=== PATIENT | male | born 1950 | race Caucasian/White ===

== ENCOUNTER 2020-06-27 06:32 | Observation (INO) | payer MEDICARE ==
[2020-06-27] MEDS ORDERED: SODIUM CHLORIDE 0.9% 500 ML 500 ML IV STA (06:55)
[2020-06-27] MEDS ORDERED: MORPHINE SULFATE 4 MG/ML SYRINGE IV STA (06:55)
--- NOTE | 2020-06-27 06:58 | ED ---
General Adult HPI - General Chief complaint: Chest Pain Stated complaint: Chest Pain Time Seen by Provider: 06/27/20 06:46 Source: patient, RN notes reviewed Mode of arrival: wheelchair Limitations: no limitations - History of Present Illness Initial comments: 70-year-old male with a past medical history of coronary bypass in 2015 presents to the emergency room for a chief complaint of left arm pain. Patient states he woke up around 1:30 this morning and had a pain in his left arm. States it radiates downwards. States this is accompanied by chest tightness but denies any chest pain. Denies shortness of breath. Denies diaphoresis nausea or vom iting. Patient states he took nitro 3 times but it did not help. He states this medication is probably 4 years old. Patient is from [place] and is visiting this area. Patient believes he had a normal stress test 3 years ago. Patient has no other complaints at this time including shortness of breath, abdominal pain, nausea or vomiting, headache, or visual changes. - Related Data Home Medications Medication Instructions Recorded Confirmed Aspirin EC [Ecotrin] 325 mg PO DAILY 06/27/20 06/27/20 Isosorbide Mononitrate ER [Imdur] 30 mg PO DAILY 06/27/20 06/27/20 Pantoprazole Sodium [Protonix] 40 mg PO DAILY 06/27/20 06/27/20 Simvastatin [Zocor] 20 mg PO HS 06/27/20 06/27/20 amLODIPine [Norvasc] 5 mg PO DAILY 06/27/20 06/27/20 Allergies Allergy/AdvReac Type Severity Reaction Status Date / Time cephalexin [From Keflex] Allergy Rash/Hives Verified 06/27/20 07:35 Penicillins Allergy Rash/Hives Verified 06/27/20 07:35 Review of Systems ROS Statement: Those systems with pertinent positive or pertinent negative responses have been documented in the HPI. ROS Other: All systems not noted in ROS Statement are negative. Past Medical History Past Medical History: Myocardial Infarction ([place]) History of Any Multi-Drug Resistant Organisms: None Reported Past Surgical History: Coronary Bypass/CABG, Heart Catheterization, Heart Catheterization With Stent Past Psychological History: No Psychological Hx Reported Smoking Status: Former smoker Past Alcohol Use History: Daily Past Drug Use History: None Reported General Exam Limitations: no limitations General appearance: alert, in no apparent distress Head exam: Present: atraumatic, normocephalic, normal inspection Eye exam: Present: normal appearance, PERRL, EOMI. Absent: scleral icterus, conjunctival injection, periorbital swelling ENT exam: Present: normal exam, mucous membranes moist Neck exam: Present: normal inspection, full ROM. Absent: tenderness, meningismus, lymphadenopathy Respiratory exam: Present: normal lung sounds bilaterally. Absent: respiratory distress, wheezes, rales, rhonchi, stridor Cardiovascular Exam: Present: regular rate, normal rhythm, normal heart sounds. Absent: systolic murmur, diastolic murmur, rubs, gallop, clicks GI/Abdominal exam: Present: soft, normal bowel sounds. Absent: distended, tenderness, guarding, rebound, rigid Extremities exam: Present: other (Radial pulses 2+ and equal bilaterally) Neurological exam: Present: alert Course Vital Signs 06/27/20 06/27/20 06/27/20 06:36 06:46 07:58 Temperature 97.7 F Pulse Rate 78 64 Pulse Rate [ 79 Jewel Stripper ] Respiratory 18 18 Rate Blood Pressure 155/87 131/87 O2 Sat by Pulse 100 98 Oximetry EKG Findings - EKG Comments: EKG Findings:: 0657: Normal sinus rhythm, ventricular rate 68, W[place] interval 204, QTC 452. 0715: Normal sinus rhythm, ventricular rate 68, W[place] interval 204, QTC 440 Medical Decision Making - Medical Decision Making HPI physical exam as documented. Vitals are stable. Patient complaining of left arm pain and chest tightness. He does have cardiac history. Radial pulses 2+ and equal bilaterally. Lung sounds are clear. EKG unremarkable. Troponin is negative after about 6 hours of pain. Patient will be admitted for cardiac rule out and trending troponin. - Lab Data Result diagrams: 06/27/20 07:13 06/27/20 07:13 Lab Results 06/27/20 06/27/20 06/27/20 Range/Units 07:13 07:13 07:13 WBC 5.2 (3.8-10.6) k/uL RBC 5.06 (4.30-5.90) m/uL Hgb 15.4 (13.0-17.5) gm/dL Hct 46.7 (39.0-53.0) % MCV 92.3 (80.0-100.0) fL MCH 30.4 (25.0-35.0) pg MCHC 33.0 (31.0-37.0) g/dL RDW 12.8 (11.5-15.5) % Plt Count 217 (150-450) k/uL Neutrophils % 57 % Lymphocytes % 31 % Monocytes % 6 % Eosinophils % 3 % Basophils % 1 % Neutrophils # 3.0 (1.3-7.7) k/uL Lymphocytes # 1.6 (1.0-4.8) k/uL Monocytes # 0.3 (0-1.0) k/uL Eosinophils # 0.2 (0-0.7) k/uL Basophils # 0.1 (0-0.2) k/uL PT 9.9 (9.0-12.0) sec INR 1.0 (<1.2) APTT 25.6 (22.0-30.0) sec Sodium 141 (137-145) mmol/L Potassium 4.2 (3.5-5.1) mmol/L Chloride 107 (98-107) mmol/L Carbon Dioxide 27 (22-30) mmol/L Anion Gap 7 mmol/L BUN 18 (9-20) mg/dL Creatinine 0.95 (0.66-1.25) mg/dL Est GFR (CKD-EPI)AfAm >90 (>60 ml/min/1.73 sqM) Est GFR (CKD-EPI)NonAf 82 (>60 ml/min/1.73 sqM) Glucose 103 H (74-99) mg/dL Calcium 9.4 (8.4-10.2) mg/dL Magnesium 2.2 (1.6-2.3) mg/dL Total Bilirubin 1.1 (0.2-1.3) mg/dL AST 36 (17-59) U/L ALT 25 (4-49) U/L Alkaline Phosphatase 52 (38-126) U/L Troponin I (0.000-0.034) ng/mL Total Protein 7.8 (6.3-8.2) g/dL Albumin 4.6 (3.5-5.0) g/dL 06/27/20 Range/Units 07:13 WBC (3.8-10.6) k/uL RBC (4.30-5.90) m/uL Hgb (13.0-17.5) gm/dL Hct (39.0-53.0) % MCV (80.0-100.0) fL MCH (25.0-35.0) pg MCHC (31.0-37.0) g/dL RDW (11.5-15.5) % Plt Count (150-450) k/uL Neutrophils % % Lymphocytes % % Monocytes % % Eosinophils % % Basophils % % Neutrophils # (1.3-7.7) k/uL Lymphocytes # (1.0-4.8) k/uL Monocytes # (0-1.0) k/uL Eosinophils # (0-0.7) k/uL Basophils # (0-0.2) k/uL PT (9.0-12.0) sec INR (<1.2) APTT (22.0-30.0) sec Sodium (137-145) mmol/L Potassium (3.5-5.1) mmol/L Chloride (98-107) mmol/L Carbon Dioxide (22-30) mmol/L Anion Gap mmol/L BUN (9-20) mg/dL Creatinine (0.66-1.25) mg/dL Est GFR (CKD-EPI)AfAm (>60 ml/min/1.73 sqM) Est GFR (CKD-EPI)NonAf (>60 ml/min/1.73 sqM) Glucose (74-99) mg/dL Calcium (8.4-10.2) mg/dL Magnesium (1.6-2.3) mg/dL Total Bilirubin (0.2-1.3) mg/dL AST (17-59) U/L ALT (4-49) U/L Alkaline Phosphatase (38-126) U/L Troponin I <0.012 (0.000-0.034) ng/mL Total Protein (6.3-8.2) g/dL Albumin (3.5-5.0) g/dL Disposition Clinical Impression: Chest pain, Arm pain Disposition: ADMITTED IP TO THIS [facility] Instructions (If sedation given, give patient instructions): Chest Pain (ED) Is patient prescribed a controlled substance at d/c from ED?: No Referrals: Nonstaff,Physician [Primary Care Provider] - 1-2 days Time of Disposition: 08:08
[2020-06-27] MEDS ORDERED: NITROGLYCERIN SL TABS 0.4 MG TAB SUBLINGUAL STA (07:04)
[2020-06-27 07:21] LABS: Basophils # (A) 0.1 k/uL (0-0.2); Basophils % (A) 1 %; Eosinophils # (A) 0.2 k/uL (0-0.7); Eosinophils % (A) 3 %; HCT 46.7 % (39.0-53.0); HGB 15.4 gm/dL (13.0-17.5); Lymphocytes # (A) 1.6 k/uL (1.0-4.8); Lymphocytes % (A) 31 %; MCH 30.4 pg (25.0-35.0); MCV 92.3 fL (80.0-100.0); Mean Platelet Volume 7.8; Monocytes # (A) 0.3 k/uL (0-1.0); Monocytes % (A) 6 %; Neutrophils % (A) 57 %; Platelet Count 217 k/uL (150-450); RBC 5.06 m/uL (4.30-5.90); RDW 12.8 % (11.5-15.5); WBC 5.2 k/uL (3.8-10.6)
[2020-06-27 07:29] LABS: Partial Thromboplastin Time 25.6 sec (22.0-30.0); Prothrombin Time 9.9 sec (9.0-12.0)
[2020-06-27 07:31] LABS: ALT 25 U/L (4-49); African American GFR (CKD) >90 (>60 ml/min/1.73 sqM); Albumin 4.6 g/dL (3.5-5.0); Anion Gap 7 mmol/L; Blood Urea Nitrogen 18 mg/dL (9-20); Calcium 9.4 mg/dL (8.4-10.2); Carbon Dioxide 27 mmol/L (22-30); Chloride 107 mmol/L (98-107); Glucose 103 mg/dL (74-99); Non-African American GFR(CKD) 82 (>60 ml/min/1.73 sqM); Sodium 141 mmol/L (137-145); Total Bilirubin 1.1 mg/dL (0.2-1.3); Total Protein 7.8 g/dL (6.3-8.2)
[2020-06-27 07:34] LABS: Magnesium 2.2 mg/dL (1.6-2.3); Potassium 4.2 mmol/L (3.5-5.1)
[2020-06-27 07:35] LABS: AST 36 U/L (17-59); Alkaline Phosphatase 52 U/L (38-126)
--- NOTE | 2020-06-27 07:39 | XR ---
EXAMINATION TYPE: XR chest 2V DATE OF EXAM: 06/27/2020 COMPARISON: NONE HISTORY: Left-sided chest pain. TECHNIQUE: Frontal and lateral views of the chest are obtained. FINDINGS: Overlying sternal wires and mediastinal clips are present. Overlying EKG leads. There is s ome chronic parenchymal change without suspicious focal air space opacity, pleural effusion, or pneum othorax seen. The cardiac silhouette size is within normal limits. The osseous structures are inta ct. IMPRESSION: No acute cardiopulmonary process.
[2020-06-27] MEDS ORDERED: MORPHINE SULFATE 4 MG/ML SYRINGE IVP STA (07:48)
[2020-06-27] MEDS ORDERED: NITROGLYCERIN SL TABS 0.4 MG TAB SUBLINGUAL PRN (08:04)
[2020-06-27] MEDS ORDERED: MORPHINE SULFATE 4 MG/ML SYRINGE IVP PRN (08:06)
[2020-06-27] MEDS ORDERED: HYDROcodone/APAP 7.5-325MG 1 EACH TAB PO PRN (10:55)
--- NOTE | 2020-06-27 11:50 | P.HPIM ---
History of Present Illness 70-year-old male known history of CABG in 2016 and came in with compensative chest pain on the left side of the chest mild pressure-like sensation also pain in the left elbow area left elbow pain is sharp and moderate severity. Patient denied any associated shortness of breath or diaphoresis nausea lightheadedness chest pain is nonpleuritic not associated with food. Patient had a normal stress test 3 years ago. Patient denied any fever chills patient denied any cough. Patient did take 3 nitro which didn't help but only thing that helps him is morphine. Patient was set of troponin is negative EKG didn't show any acute ST-T wave changes Review of Systems REVIEW OF SYSTEMS: CONSTITUTIONAL: No fever, no malaise, no fatigue. HEENT: No recent visual problems or hearing problems. Denied any sore throat. CARDIOVASCULAR: No orthopnea, PND, no palpitations, no syncope. PULMONARY: No shortness of breath, no cough, no hemoptysis. GASTROINTESTINAL: No diarrhea, no nausea, no vomiting, no abdominal pain. NEUROLOGICAL: No headaches, no weakness, no numbness. HEMATOLOGICAL: Denies any bleeding or petechiae. GENITOURINARY: Denies any burning micturition, frequency, or urgency. MUSCULOSKELETAL/RHEUMATOLOGICAL: Denies any joint pain, swelling, or any muscle pain. ENDOCRINE: Denies any polyuria or polydipsia. The rest of the 14-point review of systems is negative. Past Medical History Past Medical History: Coronary Artery Disease (CAD), GERD/Reflux, Hypertension, Myocardial Infarction ([place]) Additional Past Medical History / Comment(s): Past HTN, pt states on statin prophyllactically, occasional low back pain/R side sciatica. Last Myocardial Infarction Date:: 2002 History of Any Multi-Drug Resistant Organisms: None Reported Past Surgical History: Coronary Bypass/CABG, Heart Catheterization, Heart Catheterization With Stent Additional Past Surgical History / Comment(s): PCIs with stents, 02/2016 CABG-2 vessel, EGD, colonoscopy, prostate biopsy d/t elevated PSA-normal. Past Anesthesia/Blood Transfusion Reactions: No Reported Reaction Date of Last Stent Placement:: 2008 Smoking Status: Former smoker - Past Family History Father Family Medical History: Diabetes Mellitus, Eye Disorder, Musculoskeletal Disorder, Neurologic Disorder, Renal Disease Additional Family Medical History / Comment(s): Macular degeneration, parkinson's dx, kidney dx, from dementia at the age of 89yrs. Mother Family Medical History: Coronary Artery Disease (CAD), CVA/TIA, Eye Disorder Additional Family Medical History / Comment(s): Macular degeneration, TIAs, at the age of 92 yrs. Medications and Allergies Home Medications Medication Instructions Recorded Confirmed Type Aspirin EC [Ecotrin] 325 mg PO DAILY 06/27/20 06/27/20 History Isosorbide Mononitrate ER [Imdur] 30 mg PO DAILY 06/27/20 06/27/20 History Pantoprazole Sodium [Protonix] 40 mg PO DAILY 06/27/20 06/27/20 History Simvastatin [Zocor] 20 mg PO HS 06/27/20 06/27/20 History amLODIPine [Norvasc] 5 mg PO DAILY 06/27/20 06/27/20 History Allergies Allergy/AdvReac Type Severity Reaction Status Date / Time cephalexin [From Keflex] Allergy Rash/Hives Verified 06/27/20 07:35 Penicillins Allergy Rash/Hives Verified 06/27/20 07:35 Physical Exam Vitals: Vital Signs Temp Pulse Pulse Resp BP BP Pulse Ox 06/27/20 09:46 65 16 06/27/20 09:32 97.1 F L 62 16 138/80 97 06/27/20 09:16 97.5 F L 59 L 18 139/93 96 06/27/20 08:04 98 06/27/20 07:58 64 18 131/87 98 06/27/20 06:46 79 06/27/20 06:36 97.7 F 78 18 155/87 100 Intake and Output 06/26/20 06/27/20 06/27/20 22:59 06:59 14:59 Other: # Voids 1 Weight 81.647 kg 81.647 kg PHYSICAL EXAMINATION: GENERAL: The patient is alert and oriented x3, not in any acute distress. Well developed, well nourished. HEENT: Pupils are round and equally reacting to light. EOMI. No scleral icterus. No conjunctival pallor. Normocephalic, atraumatic. No pharyngeal erythema. No thyromegaly. CARDIOVASCULAR: S1 and S2 present. No murmurs, rubs, or gallops. PULMONARY: Chest is clear to auscultation, no wheezing or crackles. ABDOMEN: Soft, nontender, nondistended, normoactive bowel sounds. No palpable organomegaly. MUSCULOSKELETAL: No joint swelling or deformity. EXTREMITIES: No cyanosis, clubbing, or pedal edema. NEUROLOGICAL: Gross neurological examination did not reveal any focal deficits. SKIN: No rashes. Results CBC & Chem 7: 06/27/20 07:13 06/27/20 07:13 Labs: Abnormal Lab Results - Last 24 Hours (Table) 06/27/20 Range/Units 07:13 Glucose 103 H (74-99) mg/dL Thrombosis Risk Factor Assmnt - Choose All That Apply Any of the Below Risk Factors Present?: Yes Each Factor Represents 1 point: Obesity (BMI >25) Other Risk Factors: Yes Each Risk Factor Represents 2 Points: Age 61-74 years Other congenital or acquired thrombophilia - If yes, enter type in comment: No Thrombosis Risk Factor Assessment Total Risk Factor Score: 3 Thrombosis Risk Factor Assessment Level: Moderate Risk Assessment and Plan Plan: -Chest pain: We will rule out acute coronary syndromes or 2 more sets of troponins and EKGs will be obtained and cardiology will evaluate the patient. Probably will need a stress test if troponins are negative. Continue with his home dose of aspirin. -Left elbow pain can be [place]'s catheter can be related to angina further management as mentioned in previous assessment -Hyperlipidemia -hypertension -Gastroesophageal reflux disease For all the above-mentioned chronic medical problems patient will be resumed on appropriate home medications
[2020-06-27] MEDS ORDERED: ISOSORBIDE MONONITRATE ER 30 MG TAB.ER.24H PO STA (13:43)
--- NOTE | 2020-06-27 14:01 | P.CRDCN ---
History of Present Illness History of present illness: HISTORY OF PRESENTING ILLNESS This is a pleasant 70-year-old male past medical history significant for coronary artery disease status post bypass grafting in 2016 with a 2 vessel bypass including LEMUS to LAD, hypertension, dyslipidemia, former nicotine dependence and daily alcohol intake. He is here visiting from out of town from 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 He states his cardiac disease started in 2002 and he underwent stent placement on 3 separate occasions and ultimately had a bypass surgery in 2016. We have been asked to see in consultation for chest pain. He states he woke at 1:30 in the morning with a discomfort in the left upper arm described as a tightness. The sensation was reminiscent of cardiac disease in the past prompting him to take a sublingual nitroglycerin. The nitro did not relieve his discomfort however he did lay down to sleep. He woke up shortly thereafter with a vague tightness in the left precordial region. He took another nitro but still achieved no relief of chest or arm pain. He woke up again at 0630 with ongoing pain in the left arm and mild chest tightness 2/10. On arrival to ER he was having ongoing pain. Another SL nitro was given and did achieve relief. He states the nitro he had a home were . He is seen and examined resting comfortably in no acute distress. He denies associated shortness of breath, dizziness, palpitations, diaphoresis, nausea or vomiting. DIAGNOSTICS EKG reveals sinus mechanism with non-specific changes noted. Chest xray negative for an acute cardiopulmonary process. Laboratory reviewed, CBC unremarkable, sodium 141, potassium 4.2, creatinine 0.95, cardiac enzymes negative x2. Current cardiac medications include aspirin 325 mg daily, imdur 30 mg daily, simvastatin 20 mg daily and amlodipine 5 mg daily. REVIEW OF SYSTEMS At the time of my exam: CONSTITUTIONAL: Denies fever or chills. CARDIOVASCULAR: Denies chest pain, shortness of breath, orthopnea, PND or palpitations. RESPIRATORY: Denies cough. GASTROINTESTINAL: Denies abdominal pain, diarrhea, constipation, nausea or vomiting. MUSCULOSKELETAL: Denies myalgias. NEUROLOGIC: Denies numbness, tingling or weakness. ENDOCRINE: Denies fatigue, weight change, polydipsia or polyurina. GENITOURINARY: Denies burning, hematuria or urgency with micturation. HEMATOLOGIC: Denies history of anemia or bleeding. PHYSICAL EXAMINATION Blood pressure 138/80 heart rate 65 afebrile and maintaining oxygen saturation on room air. CONSTITUTIONAL: No apparent distress. HEENT: Head is normocephalic. Pupils are equal, round. Sclerae anicteric. Mucous membranes of the mouth are moist. No JVD. No carotid bruit. CHEST EXAMINATION: Lungs are clear to auscultation. No chest wall tenderness is noted on palpation or with deep breathing. HEART EXAMINATION: Regular rate and rhythm. S1, S2 heard. Systolic ejection murmur at the base, no gallops or rub. ABDOMEN: Soft, nontender. Positive bowel sounds. EXTREMITIES: 2+ peripheral pulses, no lower extremity edema and no calf tende rness. NEUROLOGIC EXAMINATION: Patient is awake, alert and oriented x3. ASSESSMENT Chest pain Coronary artery disease s/p bypass grafting 2015 - 2V Hypertension Dyslipidemia Daily alcohol intake Former nicotine dependence PLAN Continue to obtain serial cardiac enzymes to rule out an acute event. Obtain 2D echocardiogram and doppler study to assess cardiac structure and function. Decrease aspirin to 81 mg daily and increase imdur to 60 mg daily. If an acute event has been ruled out we will recommend a nuclear stress test tomorrow. Further recommendations to follow based on clinical course. Thank you kindly for this consultation. Nurse Practitioner note has been reviewed, I agree with a documented findings and plan of care. Patient was seen and examined. Past Medical History Past Medical History: Coronary Artery Disease (CAD), GERD/Reflux, Hypertension, Myocardial Infarction ([place]) Additional Past Medical History / Comment(s): Past HTN, pt states on statin prophyllactically, occasional low back pain/R side sciatica. Last Myocardial Infarction Date:: 2002 History of Any Multi-Drug Resistant Organisms: None Reported Past Surgical History: Coronary Bypass/CABG, Heart Catheterization, Heart Catheterization With Stent Additional Past Surgical History / Comment(s): PCIs with stents, 02/2016 CABG-2 vessel, EGD, colonoscopy, prostate biopsy d/t elevated PSA-normal. Past Anesthesia/Blood Transfusion Reactions: No Reported Reaction Date of Last Stent Placement:: 2008 Smoking Status: Former smoker - Past Family History Father Family Medical History: Diabetes Mellitus, Eye Disorder, Musculoskeletal Disorder, Neurologic Disorder, Renal Disease Additional Family Medical History / Comment(s): Macular degeneration, parkinson's dx, kidney dx, from dementia at the age of 89yrs. Mother Family Medical History: Coronary Artery Disease (CAD), CVA/TIA, Eye Disorder Additional Family Medical History / Comment(s): Macular degeneration, TIAs, at the age of 92 yrs. Medications and Allergies Home Medications Medication Instructions Recorded Confirmed Type Aspirin EC [Ecotrin] 325 mg PO DAILY 06/27/20 06/27/20 History Isosorbide Mononitrate ER [Imdur] 30 mg PO DAILY 06/27/20 06/27/20 History Pantoprazole Sodium [Protonix] 40 mg PO DAILY 06/27/20 06/27/20 History Simvastatin [Zocor] 20 mg PO HS 06/27/20 06/27/20 History amLODIPine [Norvasc] 5 mg PO DAILY 06/27/20 06/27/20 History Allergies Allergy/AdvReac Type Severity Reaction Status Date / Time cephalexin [From Keflex] Allergy Rash/Hives Verified 06/27/20 07:35 Penicillins Allergy Rash/Hives Verified 06/27/20 07:35 Physical Exam Vitals: Vital Signs Temp Pulse Pulse Resp BP BP Pulse Ox 06/27/20 13:20 65 16 06/27/20 09:46 65 16 06/27/20 09:32 97.1 F L 62 16 138/80 97 06/27/20 09:16 97.5 F L 59 L 18 139/93 96 06/27/20 08:04 98 06/27/20 07:58 64 18 131/87 98 06/27/20 06:46 79 06/27/20 06:36 97.7 F 78 18 155/87 100 Intake and Output 06/26/20 06/27/20 06/27/20 22:59 06:59 14:59 Other: # Voids 1 Weight 81.647 kg 81.647 kg Results 06/27/20 07:13 06/27/20 07:13 Cardiac Enzymes 06/27/20 06/27/20 06/27/20 Range/Units 07:13 07:13 10:07 AST 36 (17-59) U/L Troponin I <0.012 <0.012 (0.000-0.034) ng/mL Coagulation 06/27/20 Range/Units 07:13 PT 9.9 (9.0-12.0) sec APTT 25.6 (22.0-30.0) sec CBC 06/27/20 Range/Units 07:13 WBC 5.2 (3.8-10.6) k/uL RBC 5.06 (4.30-5.90) m/uL Hgb 15.4 (13.0-17.5) gm/dL Hct 46.7 (39.0-53.0) % Plt Count 217 (150-450) k/uL Comprehensive Metabolic Panel 06/27/20 Range/Units 07:13 Sodium 141 (137-145) mmol/L Potassium 4.2 (3.5-5.1) mmol/L Chloride 107 (98-107) mmol/L Carbon Dioxide 27 (22-30) mmol/L BUN 18 (9-20) mg/dL Creatinine 0.95 (0.66-1.25) mg/dL Glucose 103 H (74-99) mg/dL Calcium 9.4 (8.4-10.2) mg/dL AST 36 (17-59) U/L ALT 25 (4-49) U/L Alkaline Phosphatase 52 (38-126) U/L Total Protein 7.8 (6.3-8.2) g/dL Albumin 4.6 (3.5-5.0) g/dL Current Medications Generic Name Dose Route Start Last Admin Trade Name Freq PRN Reason Stop Dose Admin Hydrocodone Bitart/Acetaminophen 1 each 06/27/20 10:55 Hydrocodone/Apap 7.5-325mg 1 Each Tab PO Q6H PRN Moderate Pain Amlodipine Besylate 5 mg 06/28/20 09:00 Amlodipine 5 Mg Tab PO DAILY [facility] Aspirin 81 mg 06/28/20 09:00 Aspirin 81 Mg PO DAILY [facility] Atorvastatin Calcium 10 mg 06/27/20 21:00 Atorvastatin 10 Mg Tab PO HS [facility] Isosorbide Mononitrate 30 mg 06/28/20 09:00 Isosorbide Mononitrate Er 30 Mg Tab.Er.24h PO DAILY [facility] Morphine Sulfate 4 mg 06/27/20 08:06 Morphine Sulfate 4 Mg/Ml Syringe IVP Q4H PRN Severe Pain Nitroglycerin 0.4 mg 06/27/20 08:04 Nitroglycerin Sl Tabs 0.4 Mg Tab SUBLINGUAL Q5M PRN Chest Pain Pantoprazole Sodium 40 mg 06/28/20 07:30 Pantoprazole 40 Mg Tablet PO AC-BRKFST RICHARD Intake and Output 06/26/20 06/27/20 06/27/20 22:59 06:59 14:59 Other: # Voids 1 Weight 81.647 kg 81.647 kg Patient Weight 06/28/20 06:59 Weight 81.647 kg 06/27/20 07:13 06/27/20 07:13
[2020-06-27] MEDS ORDERED: ATORVASTATIN 10 MG TAB PO SCH (21:00)
[2020-06-28 02:26] LABS: Cholesterol 174 mg/dL (<200); HDL Cholesterol 56 mg/dL (40-60); LDL Cholesterol,Calculated 102 mg/dL (0-99); Triglycerides 82 mg/dL (<150)
[2020-06-28] MEDS ORDERED: PANTOPRAZOLE 40 MG TABLET PO SCH (07:30)
[2020-06-28 08:09] VITALS: BP 129/75; PULSE 52; RESP 16; TEMP 97.5
[2020-06-28] MEDS ORDERED: ASPIRIN 81 MG PO SCH (09:00)
[2020-06-28] MEDS ORDERED: ASPIRIN 325 MG TAB PO SCH (09:00)
[2020-06-28] MEDS ORDERED: ISOSORBIDE MONONITRATE ER 30 MG TAB.ER.24H PO SCH (09:00)
[2020-06-28] MEDS ORDERED: ISOSORBIDE MONONITRATE ER 60 MG TAB.ER.24H PO SCH (09:00)
[2020-06-28] MEDS ORDERED: amLODIPine 5 MG TAB PO SCH (09:00)
--- NOTE | 2020-06-28 09:00 | ECHOF ---
Referral Reason:chest pain MEASUREMENTS -------- HEIGHT: 175.3 cm WEIGHT: 81.6 kg BP: 138/80 RVIDd: 3.0 cm (< 3.3) IVSd: 1.3 cm (0.6 - 1.1) LVIDd: 4.5 cm (3.9 - 5.3) LVPWd: 1.2 cm (0.6 - 1.1) IVSs: 1.7 cm LVIDs: 3.1 cm LVPWs: 1.6 cm LA Diam: 3.4 cm (2.7 - 3.8) LAESV Index (A-L): 24.12 ml/m Ao Diam: 3.5 cm (2.0 - 3.7) AV Cusp: 2.3 cm (1.5 - 2.6) MV EXCURSION: 16.703 mm (> 18.000) MV EF SLOPE: 58 mm/s (70 - 150) EPSS: 1.1 cm MV E Khalif: 0.83 m/s MV DecT: 242 ms MV A Khalif: 1.00 m/s MV E/A Ratio: 0.83 RAP: 5.00 mmHg RVSP: 21.56 mmHg FINDINGS -------- Sinus rhythm. This was a technically good study. The left ventricular size is normal. There is mild concentric left ventricular hypertrophy. Overa ll left ventricular systolic function is normal with, an EF between 55 - 60 %. The right ventricle is normal in size. Normal LA size by volume 22+/-6 ml/m2. The right atrium is normal in size. Interatrial and interventricular septum intact. There is mild aortic valve sclerosis. There is trace to mild mitral regurgitation. Mild tricuspid regurgitation present. Right ventricular systolic pressure is normal at < 35 mmHg. There is no pulmonic regurgitation present. The aortic root size is normal. Normal inferior vena cava with normal inspiratory collapse consistent with estimated right atrial pre ssure of 5 mmHg. There is no pericardial effusion. CONCLUSIONS -------- 1. The left ventricular size is normal. 2. There is mild concentric left ventricular hypertrophy. 3. Overall left ventricular systolic function is normal with, an EF between 55 - 60 %. 4. There is mild aortic valve sclerosis. 5. There is trace to mild mitral regurgitation. 6. Mild tricuspid regurgitation present. 7. There is no pericardial effusion. PROJECT PORTFOLIO ANALYST: Luciana Lopez RDCS
--- NOTE | 2020-06-28 11:32 | NM ---
EXAMINATION TYPE: NM stress cardiolite complete DATE OF EXAM: 06/28/2020 COMPARISON: NONE HISTORY: Chest pain TECHNIQUE: After the intravenous administration of 10.1 mCi Tc 99m Sestamibi - Rest images obtained 45 minutes post injection. The patient exercised using a COLTON protocol and 1 minute prior to peak exercise was injected with 26.4 mCi Tc 99m Sestamibi - Stress images obtained 15 minutes post injecti on. FINDINGS: Targeted heart rate was achieved during performance of the study. Review of stress and rest SPECT rayne ges demonstrates no distinct perfusion abnormality. Gated analysis shows normal wall motion with an estimated left ventricular ejection fraction of 67 %. TID 0.82 IMPRESSION: 1. No scintigraphic evidence for reversible ischemia. 2. Ejection fraction 67%.
--- NOTE | 2020-06-28 14:01 | EST ---
EXERCISE STRESS AGE: 70 SEX: M HT: 5'9" WT: 180 lbs. PROTOCOL: Keagan. STAGE: 3 DURATION OF EXERCISE: 8:00 HEART RATE REST: 63 BLOOD PRESSURE REST: 143/93 MAXIMUM HEART RATE ACHIEVED: 131 MAXIMUM BLOOD PRESSURE: 214/77 85% MPHR: 129 100% MPHR: 152 METS: 9.7 INDICATIONS: Chest pain. CLINICAL INFORMATION: Baseline EKG revealed normal sinus rhythm with minor nonspecific ST abnormality. Patient walked for 8 minutes on a standard Ke[place] protocol. Achieved a maximal heart rate of 131 beats per minute. Resting heart rate was 63 beats per minute. Resting blood pressure was 140/90. Peak blood pressure was 214/77. He did not have any angina. There was no significant arrhythmia. EKG did not reveal any new ST-segment changes to indicate ischemia. By EKG criteria, this is a negative stress test with fair exercise capacity. The nuclear scan results which are more pertinent will be reported by the radiologist. MMUSHA / EVELIAN: [id number] /
--- NOTE | 2020-06-28 14:34 | P.DS ---
Providers Date of admission: 06/27/20 08:03 Attending physician: Nic Hebert Consults: 06/27/20 08:04 Consult Physician Routine Consulting Provider: [facility] Consult Reason/Comments: chest pain, arm pain, h/o CABG Do you want consulting provider notified?: Yes Primary care physician: Physician Nonstaff Hospital Course: Patient with a history of cannot a bypass grafting, came in with chest pain which is atypical nature patient underwent stress test which did not show any significant inducible ischemia patient was subsequently discharged and his dose of him due to his increased. Ruled out acute coronary syndromes. Please refer to my dictation of H&P a from yesterday for further details of hospitalization course and other medical problems that were addressed. Plan - Discharge Summary Discharge Rx Participant: No New Discharge Prescriptions: New Isosorbide Mononitrate ER [Imdur] 60 mg PO DAILY #30 tab.er.24h Nitroglycerin Sl Tabs [Nitrostat] 0.4 mg SUBLINGUAL Q5M PRN #100 tab PRN Reason: Chest Pain Continue Simvastatin [Zocor] 20 mg PO HS Aspirin EC [Ecotrin] 325 mg PO DAILY amLODIPine [Norvasc] 5 mg PO DAILY Pantoprazole Sodium [Protonix] 40 mg PO DAILY Discontinued Isosorbide Mononitrate ER [Imdur] 30 mg PO DAILY Discharge Medication List Aspirin EC [Ecotrin] 325 mg PO DAILY 06/27/20 [History] Pantoprazole Sodium [Protonix] 40 mg PO DAILY 06/27/20 [History] Simvastatin [Zocor] 20 mg PO HS 06/27/20 [History] amLODIPine [Norvasc] 5 mg PO DAILY 06/27/20 [History] Isosorbide Mononitrate ER [Imdur] 60 mg PO DAILY #30 tab.er.24h 06/28/20 [Rx] Nitroglycerin Sl Tabs [Nitrostat] 0.4 mg SUBLINGUAL Q5M PRN #100 tab 06/28/20 [Rx] Follow up Appointment(s)/Referral(s): Nonstaff,Physician [Primary Care Provider] - 3 Days (Please call your Primary care physician to schedule follow up appointment) Patient Instructions/Handouts: Chest Pain (ED) Discharge Disposition: HOME SELF-CARE
[2020-06-28] MEDS ORDERED: ATORVASTATIN 40 MG TAB PO SCH (21:00)
== END 2020-06-28 12:08 | disposition home or self-care (01) ==
LOC: EC 06:32 → 1SOBS 08:03 → 3NCARDOBS 20:34
PROVIDERS: ADMIT Hospitalist; ATTEND Hospitalist
DX: R07.89 Other chest pain (principal); I25.10 Atherosclerotic heart disease of native coronary artery without angina pectoris; E78.5 Hyperlipidemia, unspecified; M25.522 Pain in left elbow; K21.9 Gastro-esophageal reflux disease without esophagitis; I10 Essential (primary) hypertension; M54.41 Lumbago with sciatica, right side; E66.9 Obesity, unspecified; Z68.26 Body mass index [BMI] 26.0-26.9, adult; Z95.1 Presence of aortocoronary bypass graft; Z79.82 Long term (current) use of aspirin; Z79.899 Other long term (current) drug therapy; Z88.0 Allergy status to penicillin; Z88.1 Allergy status to other antibiotic agents; I25.2 Old myocardial infarction; Z95.5 Presence of coronary angioplasty implant and graft; Z87.891 Personal history of nicotine dependence; Z98.890 Other specified postprocedural states; Z83.3 Family history of diabetes mellitus; Z82.49 Family history of ischemic heart disease and other diseases of the circulatory system; Z82.69 Family history of other diseases of the musculoskeletal system and connective tissue; Z82.3 Family history of stroke; Z81.8 Family history of other mental and behavioral disorders; Z83.518 Family history of other specified eye disorder; Z84.1 Family history of disorders of kidney and ureter; Z82.0 Family history of epilepsy and other diseases of the nervous system
CPT/HCPCS: 93005 ×2; 96361; 96374; 99285; 36415; 93017; 93306; 80061; 80053; 83735; 84484; 85025; 85610; 85730; 71046; 78452; G0378 ×3; A9500; J2270